=== PATIENT | male | born 1975 | race Caucasian/White ===

== ENCOUNTER 2017-11-23 04:25 | Emergency (ER) | payer OTHER ==
[~2017-11-23] VITALS: Ht 182.9 cm; Wt 99.8 kg
[2017-11-23] MEDS ORDERED: LISINOPRIL20 MG (04:30)
[2017-11-23] MEDS ORDERED: AMOX-CLAV 875-1 EACH PO (07:47)
== END 2017-11-23 08:46 | disposition home or self-care (01) ==
LOC: ER 04:25
DX: J03.80 Acute tonsillitis due to other specified organisms (principal); R50.9 Fever, unspecified